=== PATIENT | female | born 1990 | race Caucasian/White ===

== ENCOUNTER 2019-09-09 18:22 | Emergency (ER) | payer SELFPAY ==
[~2019-09-09] VITALS: Ht 152.4 cm; Wt 57.2 kg
[2019-09-09 18:27] VITALS: BP 126/68
--- NOTE | 2019-09-09 19:40 | NUR ---
CALLED BACK TO ER BUT NOT ANSWER
--- NOTE | 2019-09-09 19:58 | NUR ---
CALLED BACK AGAIN TO ER BUT NO ANSWER. PT NOT IN WAITING ROOM
== END 2019-09-09 21:32 | disposition left against medical advice (07) ==
LOC: ER 18:24
DX: M54.9 Dorsalgia, unspecified (principal); R51 Headache; Z53.21 Procedure and treatment not carried out due to patient leaving prior to being seen by health care provider